=== PATIENT | female | born 1990 | race Caucasian/White ===

== ENCOUNTER 2016-10-27 11:04 | Inpatient (IN) | payer OTHER ==
[~2016-10-27] VITALS: Ht 172.7 cm; Wt 133.3 kg
[~2016-10-27 11:04] MED LIST: EPHEDrine SULFATE 50 MG/5 ML SYG ONE; OXYTOCIN 30 UNITS/LR 500 ML BAG IV ONE
--- NOTE | 2016-10-27 13:59 | TRIAGE ---
OB Triage Datetime Report Generated by CPN: 10/27/2016 13:58 Datetime: 10/27/2016 13:53 Labor Evaluation Frequency: 3-7 Monitor Mode: External Duration (sec)2399: 40-90 Quality: Moderate Pattern: Normal: <= 5 Contractions in 10 Minutes Resting Tone [place]: Relaxed Heart Rate FHR Baseline Rate: 140 Monitor Mode: External US FHR Baseline Changes: No Baseline Change Variability: Moderate 6-25 bpm Accelerations: 15X15 Decelerations: None Category: Category I Datetime: 10/27/2016 13:50 Stage of : Antepartum Datetime: 10/27/2016 11:27 Assessment Type: Triage Maternal Assessment Level of Consciousness: Fully Conscious DTR's/Clonus: DTRs 2+; No Clonus Headache: Temporal Blurred Vision: Yes Respiratory Effort: Unlabored; Regular Rhythm Breath Sounds, Left: Clear and Equal Breath Sounds, Right: Clear and Equal Nausea/Vomiting: Denies RUQ Epigastric Pain: Denies Lower Extremities Edema: None Degree: None Upper Extremities Edema: None Degree: None Facial Edema: None Fall Risk Assessment History of Falling: (0) No Secondary Diagnosis: (0) No Ambulatory Aid: (0) Bedrest/Nurse Assist IV Therapy: (0) No Gait: (0) Normal/Bedrest/Immobile Mental Status: (0) Oriented to Own Ability Fall Score: 0 Fall Risk Score Definition: No Risk: No action required Datetime: 10/27/2016 11:26 Stage of : OB Triage Maternal Assessment Level of Consciousness: Fully Conscious DTR's/Clonus: DTRs 2+; No Clonus Headache: Temporal Blurred Vision: No Respiratory Effort: Unlabored; Regular Rhythm Breath Sounds, Left: Clear and Equal Breath Sounds, Right: Clear and Equal Nausea/Vomiting: Denies RUQ Epigastric Pain: Denies Lower Extremities Edema: None Degree: None Upper Extremities Edema: None Degree: None Facial Edema: None Fall Risk Assessment History of Falling: (0) No Secondary Diagnosis: (0) No Ambulatory Aid: (0) Bedrest/Nurse Assist IV Therapy: (0) No Gait: (0) Normal/Bedrest/Immobile Datetime: 10/27/2016 11:23 Time of Arrival: 10/27/2016 10:50 EGA: 36.4 Chief Complaint: CONTRACTIONS AND RUDD Movement: Present Contractions: Irregular Rupture of Membranes: Denies Vaginal Bleeding: None Vaginal Discharge: Denies Recent Sexual Intercouse: Denies Abdominal Trauma: Not Applicable Patient Complaints: Contractions Initial Plan: EFM,SV,
[2016-10-27 14:21] VITALS: BP 119/67; PULSE 89; RESP 18; Ht 172.7 cm; Wt 133.3 kg
[2016-10-27] MEDS: LACTATED RINGER'S 1,000 ML IV SCH (14:26)
[2016-10-27] MEDS ORDERED: OXYTOCIN 30 UNITS/LR 500 ML IV PRN ×3 (14:30→20:30)
[2016-10-27] MEDS ORDERED: MISOPROSTOL 200 MCG TAB PR PRN ×3 (14:30→20:30)
[2016-10-27] MEDS ORDERED: CEFAZOLIN 2 GM/50 ML (PMX) 50 ML IV SCH (14:30)
[2016-10-27] MEDS ORDERED: CARBOPROST 250 MCG INJ IM PRN ×3 (14:30→20:30)
[2016-10-27] MEDS ORDERED: METHYLERGONOVINE 0.2 MG INJ IM PRN ×3 (14:30→20:30)
[2016-10-27 14:41] LABS: BASOPHILS % 0.2 % (0.0-2.0); EOSINOPHILS % 0.5 % (0.0-7.0); HEMOGLOBIN 13.1 g/dl (12.0-16.0); LYMPHOCYTES # 2.1 10^3/ul (0.8-2.9); LYMPHOCYTES % 25.8 % (15.0-51.0); MEAN CORPUSCULAR HEMOGLOBIN 27.6 pg (29.0-33.0); MEAN CORPUSCULAR HGB CONC 32.8 g/dl (32.0-37.0); MEAN CORPUSCULAR VOLUME 84.4 fl (82.0-101.0); MONOCYTE # 0.5 10^3/ul (0.3-0.9); MONOCYTES % 6.6 % (0.0-11.0); NEUTROPHILS % 66.4 % (39.0-77.0); PLATELET COUNT 255 10^3/UL (140-415); RED BLOOD COUNT 4.74 10^6/ul (4.20-5.40); RED CELL DISTRIBUTION WIDTH 14.6 % (11.5-14.5); WHITE BLOOD COUNT 8.1 10^3/ul (4.8-10.8)
[2016-10-27 14:56] LABS: INR 1.01; PROTIME 13.3 Sec (12.2-14.2)
[2016-10-27 14:57] LABS: PARTIAL THROMBOPLASTIN TIME 30.2 Sec (25.0-35.0)
[2016-10-27] MEDS ORDERED: ONDANSETRON 4 MG INJ ONE ×2 (15:26→16:10)
[2016-10-27] MEDS ORDERED: CITRIC ACID/NA CITRATE 30 ML CUP ONE (15:26)
--- NOTE | 2016-10-27 15:38 | HP ---
Date/Time of Note Date/Time of Note DATE: 10/27/16 TIME: 15:17 OB - History Hx of Present Free Text/Dictation 25 years old female 5 para 2 EDC of November 20, 2016 history of 2 previous section admitted to [facility] in active labor patient states her previous pregnancies also done at36 weeks as well Patient has been under the care of the [facility] her was not complicated with gestational diabetes -induced hypertension or any other medical or surgical condition [employer] history Menarche at age 12 history of total of 5 2 previous section 2 spontaneous portion Surgical history gallbladder removed April 2016, removal of right ovary, ovarian cyst, Allergy Denies allergy to any known medication Social habit Denies smoking or drinking or using illicit drugs Review of system Within normal Temperature 98 pulse 69 blood pressure 131/84 Head ears nose and throat negative Supple no thyromegaly Lungs clear to P&A Heart normal sinus rhythm no murmur Abdomen fundal height 37 cm from symphysis pubis heart rate category 1 Clinic exam, deferred Extremity No edema no varicosities Impression Intera uterine at 36 weeks gestation history of 2 previous section in active labor complaining of incisional pain. Plan Repeat section patient is aware consulted regarding location of the surgery including bowel bladder injury infection hemorrhage and hematoma she is willing to go ahead with this procedure Chief Complaint: 36 weeks 4 days history of 2 previous section labor with Estimated Due Date: Nov 20, 2016 : 5 Para: 2 Spontaneous : 2 Care: Good Care Ultrasounds: Normal mid trimester US Obstetrical Complications: None Medical Complications: None Past Family/Social History * Past Medical, Surgical, Family and Obstetric Histories reviewed from chart. Rubella: immune RPR/VDRL: Negative GBS Status: Negative HBsAG: Negative OB Admission Exam Vital Signs Vital Signs Vital Signs Date Time Temp Pulse Resp B/P Pulse Ox O2 Delivery O2 Flow Rate FiO2 10/27/16 14:21 98.0 89 18 119/67 Room Air Physical Exam HEENT: WNL Lungs: Clear, Equal Abdomen: WNL Extremities: Normal Heart Rate: 130's Contractions on Admission: >10 Minutes Apart Last 72 hours Lab Results CBC & BMP 10/27/16 14:20 OB Assessment/Plan Reason for admission: other (25 years old history of 2 previous C- section in active labor at 36 weeks and 4 days) Plan: Other (Repeat section for the third time) JULIANNE JONES MD Oct 27, 2016 15:36
[2016-10-27] MEDS ORDERED: morphine SULFATE/PF (10 MG/10 ML) INJ ONE (15:54)
[2016-10-27] MEDS ORDERED: PHENYLephrine (100 MCG/ML) 5ML SYG ONE ×2 (16:04→16:07)
[2016-10-27] MEDS ORDERED: ONDANSETRON 4 MG INJ IV PRN ×2 (16:30)
[2016-10-27] MEDS ORDERED: DIPHENHYDRAMINE 50 MG INJ IV PRN ×2 (16:30)
[2016-10-27] MEDS ORDERED: KETOROLAC 30 MG INJ IV PRN ×2 (16:30)
[2016-10-27] MEDS ORDERED: METOCLOPRAMIDE 10 MG INJ IV PRN (16:30)
[2016-10-27] MEDS ORDERED: FENTAnyl 50 MCG/ML VIAL IV PRN ×2 (16:30)
[2016-10-27] MEDS ORDERED: NALOXONE (0.4 MG/ML) INJ IV PRN (16:30)
[2016-10-27] MEDS ORDERED: HYDROmorphONE (0.2 MG/ML) 10ML SYG IV PRN ×2 (16:30)
[2016-10-27] MEDS ORDERED: HYDROmorphONE 1 MG/ML SYG IV PRN ×2 (16:30)
[2016-10-27] MEDS ORDERED: MEPERIDINE 25 MG INJ IV PRN (16:30)
--- NOTE | 2016-10-27 17:28 | OPR ---
Operative Report Planned Procedure Free Text/Dictation 36 weeks 4 days history of 2 previous section request for tubal ligation Procedure date Oct 27, 2016 Procedure(s) Repeat left tubal ligation Performed by: TEE WALKER MD Assisting provider: DENITA BUTCHER MD Anesthesiologist: JENS LARSEN Pre-procedure diagnosis 36 weeks 4 days history of 2 previous section request for tubal ligation in active labor Anesthesia Type: spinal Procedure Description Under satisfactory spinal anesthesia, the patient was prepped and draped and placed in a supine position, tilted to the left. Pfannenstiel incision was made , carried through the subcutaneous tissue. Bleeders brought under control with electrocautery. Fascia incised to the length of the incision. Rectus muscles from the fascia, divided midline. Peritoneum exposed, entered through a transverse incision. Exploration of abdomen revealed gravid uterus. Absent right fallopian tube and ovary left fallopian tube and ovary normal bladder flap was developed. Transverse incision was made in the lower segment of the uterus. Amniotic sac ruptured. Clear [] amniotic fluid noted. Light baby boy was delivered from occiput transverse [] Nasal oropharyngeal suction was performed. The baby was handed to the team for immediate attention. placenta was delivered manually intact. Uterine cavity was cleaned with wet sponge and drainage established. Uterus closed in 2 layers using [Monocryl #1] in continuous fashion. Left tubal ligation per by identifying the fimbria and ampullar portion of the tube which grasped by a Bolton excised cut end of the tube was cauterized suture material used #0 plain catgut was reinforced with the same suture material specimen submitted to the pathology peritoneal cavity irrigated with warm saline. Sponge, needle and instrument count reported to be correct. Abdominal peritoneum closed with [2-0 chromic catgut] continuously. Rectus muscle approximated with [2-0 chromic catgut]. Fascia closed with [#1 PDS ] tenderness tissue approximated with few interrupted 0 chromic catgut, skin closed with NSORB. Estimated blood loss [6-700 ccL. Urine bag contained [200]mL of clear urine patient tolerated procedure well transferred to recovery room in good condition. Post-Procedure Findings: Live Baby boy 8 AND 9 Specimen removed: No Complications: None Pt Condition post procedure: stable Physician Certification I, the undersigned physician, hereby certify that I have discussed the procedure described in this consent form with this patient (or the patient's legal telemarketing representative), including: * The risk and benefits of the procedure; * Any adverse reactions that may reasonably be expected to occur; * Any alternative efficacious methods of treatment which may be medically viable ; * The potential problems that may occur during recuperation; * Potential for blood transfusion and associated risks/benefits; and * Any research or economic interest I may have regarding this treatment. I further certify that the patient/legally responsible person was encouraged to ask question and that all questions were answered. JULIANNE JONES MD Oct 27, 2016 17:27
[2016-10-27] MEDS ORDERED: OXYTOCIN 30 UNITS/LR 500 ML IV SCH (20:14)
[2016-10-27] MEDS ORDERED: OXYCODONE/ACETAMINOPHEN (5/325) TAB PO PRN ×4 (20:30)
[2016-10-27] MEDS ORDERED: LANOLIN 7 GM TUBE TOP PRN ×2 (20:30)
[2016-10-27] MEDS ORDERED: IBUPROFEN 600 MG TAB PO SCH (20:30)
[2016-10-27] MEDS ORDERED: HYDROCODONE/APAP (5/325) TAB PO PRN ×3 (20:30)
[2016-10-27] MEDS ORDERED: CEFAZOLIN 1 GM/50 ML (PMX) 50 ML IVPB SCH ×2 (20:30)
[2016-10-27 20:40] VITALS: BP 128/84; PULSE 81; RESP 18
[2016-10-27] MEDS ORDERED: SENNA/DOCUSATE NA (8.6MG/50MG) TAB PO SCH (21:00)
[2016-10-27] MEDS: SENNA/DOCUSATE NA (8.6MG/50MG) TAB PO SCH (21:29)
[2016-10-27] MEDS: OXYTOCIN 30 UNITS/LR 500 ML IV SCH (21:29)
[2016-10-28] MEDS: OXYTOCIN 30 UNITS/LR 500 ML IV SCH (00:14)
[2016-10-28] MEDS: LACTATED RINGER'S 1,000 ML IV SCH ×2 (02:16→06:14)
[2016-10-28 08:00] VITALS: BP 98/58; PULSE 80; RESP 18
[2016-10-28 08:30] LABS: BASOPHILS % 0.4 % (0.0-2.0); EOSINOPHILS # 0.1 10^3/ul (0.0-0.5); HEMATOCRIT 32.9 % (37.0-47.0); HEMOGLOBIN 10.3 g/dl (12.0-16.0); LYMPHOCYTES % 21.5 % (15.0-51.0); MEAN CORPUSCULAR HEMOGLOBIN 26.6 pg (29.0-33.0); MEAN CORPUSCULAR HGB CONC 31.3 g/dl (32.0-37.0); MEAN PLATELET VOLUME 10.3 fl (7.4-10.4); MONOCYTE # 0.6 10^3/ul (0.3-0.9); MONOCYTES % 6.5 % (0.0-11.0); PLATELET COUNT 200 10^3/UL (140-415); RED BLOOD COUNT 3.87 10^6/ul (4.20-5.40); RED CELL DISTRIBUTION WIDTH 15.1 % (11.5-14.5); WHITE BLOOD COUNT 9.1 10^3/ul (4.8-10.8)
[2016-10-28] MEDS: SENNA/DOCUSATE NA (8.6MG/50MG) TAB PO SCH ×2 (09:19→21:33)
--- NOTE | 2016-10-28 11:39 | CONS ---
Date/Time of Note Date/Time of Note DATE: 10/28/16 TIME: 11:39 Consultation Date/Type/Reason Admit Date/Time Oct 27, 2016 at 13:50 Initial Consult Date 10/28/16 Type of Consultation: Anesthesiology Reason for Consultation follow up 24 HR Interval Summary Free Text/Dictation Pt seen and examined is POD#1 s/p repeat c/s with BTL. Pt received spinal duramorph for post-op pain control. She states she is doing well and her pain is adequately controlled at this time. No N/V/D/C/RUDD. No numbness in her extremities. Will continue to follow. Constitutional: improved, no complaints Exam/Review of Systems Vital Signs Vitals Vital Signs Date Time Temp Pulse Resp B/P Pulse Ox O2 Delivery O2 Flow Rate FiO2 10/28/16 09:10 96 21 10/28/16 08:00 98.0 80 18 98/58 Room Air Intake and Output 10/27/16 10/27/16 10/28/16 15:00 23:00 07:00 Intake Total 1050 ml Output Total 700 ml Balance 350 ml Results Result Diagram: 10/28/16 0735 Results 24 hrs Laboratory Tests Test 10/27/16 14:20 10/28/16 07:35 White Blood Count 8.1 9.1 Red Blood Count 4.74 3.87 L Hemoglobin 13.1 10.3 #L Hematocrit 40.0 32.9 L Mean Corpuscular Volume 84.4 85.0 Mean Corpuscular Hemoglobin 27.6 L 26.6 L Mean Corpuscular Hemoglobin Concent 32.8 31.3 L Red Cell Distribution Width 14.6 H 15.1 H Platelet Count 255 200 # Mean Platelet Volume 10.0 10.3 Neutrophils % 66.4 70.0 Lymphocytes % 25.8 21.5 Monocytes % 6.6 6.5 Eosinophils % 0.5 1.0 Basophils % 0.2 0.4 Nucleated Red Blood Cells % 0.0 0.0 Neutrophils # (Manual) 5.4 6.3 Lymphocytes # 2.1 2.0 Monocytes # 0.5 0.6 Eosinophils # 0.0 0.1 Basophils # 0.0 0.0 Nucleated Red Blood Cells # 0.0 0.0 Prothrombin Time 13.3 Prothrombin Time Ratio 1.0 INR International Normalized Ratio 1.01 Activated Partial Thromboplast Time 30.2 Rapid Plasma Reagin NONREACTIVE Hepatitis B Surface Antigen NEGATIVE Medications Medications Current Medications Lactated Ringer's (Lr) 1,000 ml @ 125 mls/hr Q8H IV Last administered on 02:16; Admin Dose 125 MLS/HR; Start 10/27/16 at 14:14 Naloxone HCl (Narcan) 0.1 mg Q2M PRN IV FOR RESP RATE 8 OR LESS; Start at 16:30; Stop 10/28/16 at 16:29 Ketorolac Tromethamine (Toradol) 30 mg Q6H PRN IV PAIN Last administered on 05:43; Admin Dose 30 MG; Start 10/27/16 at 16:30; Stop 10/28/16 at 16:29 Hydromorphone HCl (Dilaudid) 0.2 mg Q3H PRN IV PAIN LEVEL 1-5; Start 10/27/16 at 16:30; Stop 10/28/16 at 16:29 Hydromorphone HCl (Dilaudid) 0.4 mg Q3H PRN IV PAIN LEVEL 6-10; Start 10/27/16 at 16:30; Stop 10/28/16 at 16:29 Diphenhydramine HCl (Benadryl) 25 mg Q6H PRN IV ITCHING; Start 10/27/16 at 16: 30; Stop 10/28/16 at 16:29 Ondansetron HCl (Zofran Inj) 4 mg Q6H PRN IV NAUSEA AND/OR VOMITING; Start at 16:30; Stop 10/28/16 at 16:29 Acetaminophen/ Hydrocodone Bitart ([place] (5/325)) 1 tab Q4H PRN PO PAIN LEVEL 4 -6; Start 10/27/16 at 20:30 Acetaminophen/ Hydrocodone Bitart ([place] (5/325)) 2 tab Q4H PRN PO PAIN LEVEL 7 -10; Start 10/27/16 at 20:30 Oxycodone/ Acetaminophen (Percocet (5/ 325)) 1 tab Q4H PRN PO PAIN LEVEL 4-6; Start 10/27/16 at 20:30 Oxycodone/ Acetaminophen (Percocet (5/ 325)) 2 tab Q4H PRN PO PAIN LEVEL 7-10; Start 10/27/16 at 20:30 Diphtheria/ Tetanus/Acell Pertussis 0.5 ml 0.5 ml ONCE ONCE IM* ; Start at 09:00; Stop 10/30/16 at 09:01 Oxytocin/Lactated Ringer's 500 ml @ 125 mls/hr Q4H IV Last administered on 21:29; Admin Dose 125 MLS/HR; Start 10/27/16 at 20:14 Ibuprofen (Motrin) 600 mg Q6 PO ; Start 10/28/16 at 18:00 Simethicone (Mylicon) 160 mg Q8H PRN PO DISTENSION/GAS/BLOATING; Start at 20:30 Senna/Docusate Sodium (Senokot-S) 1 tab BID PO Last administered on 10/28/16 09:19; Admin Dose 1 TAB; Start 10/27/16 at 21:00 Diphtheria/ Tetanus/Acell Pertussis 0.5 ml 0.5 ml ONCE ONCE IM* ; Start at 09:00; Stop 10/30/16 at 09:01 Oxytocin/Lactated Ringer's 500 ml @ 0 mls/hr ONCE PRN IV For Hemorrhage Management; Start 10/27/16 at 20:30 Methylergonovine Maleate (Methergine) 0.2 mg ONCE PRN IM VAGINAL BLEEDING; Start 10/27/16 at 20:30 Carboprost Tromethamine (Hemabate) 250 mcg ONCE PRN IM VAGINAL BLEEDING; Start 10/27/16 at 20:30 Misoprostol 1000 mcg 1,000 mcg ONCE PRN [place] VAGINAL BLEEDING; Start 10/27/16 at 20:30 Oxytocin/Lactated Ringer's 500 ml @ 125 mls/hr Q4H IV ; Start 10/27/16 at 20:14 JENS LARSEN Oct 28, 2016 11:39
[2016-10-28 12:00] VITALS: BP 105/56; PULSE 89; RESP 18
[2016-10-28 16:21] VITALS: BP 117/99; PULSE 70; RESP 18
--- NOTE | 2016-10-28 17:15 | QN ---
Documentation Comment pod1 pt doing well vss exam wnl a/p pod 1 continue care OLIVER CALZADA MD Oct 28, 2016 17:15
[2016-10-28] MEDS: IBUPROFEN 600 MG TAB PO SCH (17:34)
[2016-10-28 19:20] VITALS: BP 110/55; PULSE 69; RESP 18
[2016-10-29] MEDS: IBUPROFEN 600 MG TAB PO SCH ×5 (00:12→23:41)
[2016-10-29 03:51] VITALS: BP 110/60; PULSE 70; RESP 18
[2016-10-29 08:11] VITALS: BP 92/75; PULSE 86; RESP 20
[2016-10-29] MEDS: HYDROCODONE/APAP (5/325) TAB PO PRN ×3 (08:54→22:28)
[2016-10-29] MEDS: SENNA/DOCUSATE NA (8.6MG/50MG) TAB PO SCH ×2 (08:54→21:04)
--- NOTE | 2016-10-29 10:21 | QN ---
Documentation Comment Post day 2 Afebrile vital signs are stable abdomen soft good bowel sounds no bowel movement ambulation recommended JULIANNE JONES MD Oct 29, 2016 10:21
[2016-10-29] MEDS ORDERED: NA PHOSPHATE/BIPHOS 133 ML ENEMA PR ONE (10:30)
[2016-10-29 15:51] VITALS: BP 99/56; PULSE 67; RESP 17
[2016-10-29 20:00] VITALS: BP 112/57; PULSE 72; RESP 18
[2016-10-30 03:45] VITALS: BP 97/55; PULSE 62; RESP 17
[2016-10-30] MEDS: IBUPROFEN 600 MG TAB PO SCH ×2 (05:35→12:20)
[2016-10-30 08:17] VITALS: BP 113/58; PULSE 58; RESP 20
[2016-10-30] MEDS ORDERED: DIPHTH/TET/ACEL PERTUSS (ADULT) 0.5 ML VIAL IM* ONE ×2 (09:00)
[2016-10-30] MEDS: SENNA/DOCUSATE NA (8.6MG/50MG) TAB PO SCH (09:36)
[2016-10-30] MEDS: HYDROCODONE/APAP (5/325) TAB PO PRN (09:36)
--- NOTE | 2016-10-30 10:02 | DS ---
Date/Time of Note Date/Time of Note DATE: 10/30/16 TIME: 09:59 Discharge Summary Admission/Discharge Info Admit Date/Time Oct 27, 2016 at 13:50 Discharge Date/Time October 30 at 9:50 AM Discharge Diagnosis Post bilateral tubal ligation day 3 Patient Condition: Good Procedures Repeat bilateral tubal ligation Hx of Present Illness Term history of previous request for bilateral tubal ligation Hospital Course Satisfactory recovery uneventful Follow-up Plan Post instructions given recommended to make appointment in 1 week to be seen at the clinic Primary Care Provider [facility] Time spent on discharge: < 30 minutes JULIANNE JONES MD Oct 30, 2016 10:02
== END 2016-10-30 16:13 | disposition home or self-care (01) | DRG 765 ==
LOC: OBT 11:04 → L-D 11:05 → OBT 13:50 → L-D 13:50 → PP1 20:55
PROVIDERS: ADMIT Obstetrics & Gynecology; ATTEND Obstetrics & Gynecology
PROC: 0UB60ZZ Excision of Left Fallopian Tube, Open Approach (ICD-10-PCS; 2016-10-27)
PROC: 10D00Z1 Extraction of Products of Conception, Low, Open Approach (ICD-10-PCS; principal; 2016-10-27 16:30)
DX: O60.14X0 Preterm labor third trimester with preterm delivery third trimester, not applicable or unspecified (principal); Z68.41 Body mass index [BMI] 40.0-44.9, adult; Z37.0 Single live birth; Z3A.36 36 weeks gestation of pregnancy; O34.219 Maternal care for unspecified type scar from previous cesarean delivery; Z90.721 Acquired absence of ovaries, unilateral; Z90.79 Acquired absence of other genital organ(s); O99.214 Obesity complicating childbirth; E66.01 Morbid (severe) obesity due to excess calories; Z30.2 Encounter for sterilization
CPT/HCPCS: 85025; 85610; 85730; 86592; 86850; 86900; 86901; 87340; 88302; 90715; 94760; 99464; G0463; J0690; J1885; J2274; J2370; J2405; J2590; J7120